=== PATIENT | female | born 1950 | race Caucasian/White ===

== ENCOUNTER 2016-06-12 18:19 | Emergency (ER) | payer OTHER ==
[~2016-06-12] VITALS: Ht 162.6 cm; Wt 77.0 kg
[~2016-06-12 18:19] MED LIST: Actonel PO; DILAUDID2 MG PO; FLEXERIL5 MG PO; INDOCIN25 MG PO; LIPITOR10 MG PO; LIPITOR5 MG PO; LOVENOX30 MG/0.3 SC; MEDROL DOSEPAK4 MG PO; NORCO 5/3251 TABLET PO; PERCOCET 5/31 TABLET PO; TORADOL10 MG PO; VALIUM5 MG PO; Vicodin,Lortab 5/500 PO; ZOFRAN4 MG PO
[2016-06-12 22:15] VITALS: BP 153/92
== END 2016-06-12 22:16 | disposition home or self-care (01) ==
LOC: EME 18:19
PROC: 0HQMXZZ Repair Right Foot Skin, External Approach (ICD-10-PCS; principal; 2016-06-12)
DX: S91.311A Laceration without foreign body, right foot, initial encounter (principal); W25.XXXA Contact with sharp glass, initial encounter
CPT/HCPCS: 73630; 99281; 99283